=== PATIENT | female | born 1995 | race Two or more races ===

== ENCOUNTER → 2021-03-13 08:03 | Outpatient (BNVA) | payer OTHER, SELFPAY | PROVIDERS: PCP Pediatrics; Visit Provider Surgery ==

== ENCOUNTER 2021-03-14 11:24 | Outpatient (REF) | payer OTHER, SELFPAY ==
--- NOTE | ~2021-03-14 | XR_ITS ---
EXAMINATION: XR CHEST CLINICAL INFORMATION: Obesity COMPARISON: None TECHNIQUE: 2 views of the chest were obtained. FINDINGS: The lung volumes are low. The cardiac and mediastinal contours are normal. The lungs are clear. There is no pleural effusion. Bony structures are unremarkable. XR/XR chest 2V IMPRESSION: Low lung volumes. No evidence for acute disease in the chest.
--- NOTE | 2021-03-14 11:39 | ECG_ITS ---
Test Reason : E66.01 Blood Pressure : / mmHG Vent. Rate : 087 BPM Atrial Rate : 087 BPM P-R Int : 128 ms QRS Dur : 090 ms QT Int : 372 ms P-R-T Axes : 059 022 016 degrees QTc Int : 447 ms Normal sinus rhythm Normal ECG No previous ECGs available Referred By: Rachid Vee Electronically Signed By:JHOAN BUTTERFIELD MD
[2021-03-14 12:29] LABS: MANUAL DIFF FLAG NO
[2021-03-14 12:33] LABS: Basophils Percent Auto 0.3 % (0-2); Eosinophils Absolute Auto 0.1 X10*3/uL (0.0-0.4); Eosinophils Percent Auto 0.8 % (0-4); Hematocrit 42.5 % (37-47); Hemoglobin 14.2 g/dl (12.0-16.0); Imm Gran Abs Auto 0.03 X10*3/uL (0.00-0.03); Imm Gran Pct Auto 0.3 % (0.0-0.4); Lymphocytes Absolute Auto 2.3 X10*3/uL (1.2-4.9); Lymphocytes Percent Auto 25.2 % (20-40); Mean Corpuscular HGB Conc 33.4 g/dl (31.0-35.0); Mean Corpuscular Hemoglobin 32.3 pg (27.0-33.0); Mean Corpuscular Volume 96.8 fL (80-98); Mean Platelet Volume 10.2 fL (9.4-12.3); Monocytes Absolute Auto 0.7 X10*3/uL (0.1-1.2); Monocytes Percent Auto 7.2 % (2-11); Neutrophils Percent Auto 66.2 % (45-73); Platelet Count 271 X10*3/uL (160-400); Red Blood Count 4.39 X10*6/uL (4.20-5.50); Red Cell Distribution Width 12.1 % (11.0-16.0)
[2021-03-14 12:51] LABS: Alanine Aminotransferase 53 U/L (0-31); Albumin Level 4.5 g/dL (3.5-5.0); Alkaline Phosphatase 62 U/L (39-117); Anion Gap 11 (12-20); Aspartate Amino Transferase 29 U/L (5-31); Bilirubin Total 0.4 mg/dL (0.0-1.0); Blood Urea Nitrogen 9 mg/dL (9-16); C Reactive Protein 0.56 mg/dL (< or = 0.50); Calcium 9.7 mg/dL (8.4-10.2); Carbon Dioxide 28 mmol/L (22-29); Chloride 104 mmol/L (96-108); Cholesterol 222 mg/dL; Estimated Glomerular Filt Rate > 60; Glucose Random 116 mg/dL (60-115); HDL Cholesterol 48 mg/dL; Iron 89 mcg/dL (30-160); LDL Cholesterol Calculated 156 mg/dl; Percent Iron Saturation 24 % (15-50); Potassium 4.2 mmol/L (3.3-5.1); Sodium 139 mmol/L (135-145); Total Iron Binding Capacity 366 mcg/dL (228-428); Total Protein 8.1 g/dL (6.5-8.0); Triglycerides 93 mg/dL; Unsaturated Iron Binding 277 ug/dL
[2021-03-14 12:57] LABS: Estimated Average Glucose 111 mg/dL; Hemoglobin A1c % 5.5 %
[2021-03-14 13:13] LABS: Ferritin 53 ng/mL (10-122); TSH reflex Free T4 1.49 uIU/mL (0.32-4.0); Vitamin D 25-OH Total 12.4 ng/mL (>30)
[2021-03-14 13:24] LABS: Folate 15.5 ng/mL (> or = 4.0); Vitamin B12 346 pg/mL (200-900)
[2021-03-15 14:22] LABS: Calcium (PTHI) 9.5 mg/dL (8.6-10.2); PTHI 67 pg/mL (14-64)
[2021-03-15 14:47] LABS: H Pylori Breath Test NOT DETECTED (NOT DETECTED)
[2021-03-16 16:57] LABS: Zinc 77 mcg/dL (60-130)
[2021-03-19 17:36] LABS: Vitamin A 48 mcg/dL (38-98); Vitamin B1 6 nmol/L (8-30)
== END 2021-03-14 11:25 | disposition home or self-care (01) ==
LOC: HO.LAB 11:24
PROVIDERS: PCP Pediatrics; Visit Provider Surgery
DX: E66.01 Morbid (severe) obesity due to excess calories (principal)
CPT/HCPCS: 36415; 71046; 80053; 80061; 82306; 82607; 82728; 82746; 83013; 83036; 83525; 83540; 83970; 84425; 84443; 84590; 84630; 85025; 86140; 93005; 99211

== ENCOUNTER → 2021-03-22 15:02 | Outpatient (BNVA) | payer OTHER, SELFPAY | PROVIDERS: PCP Pediatrics; Visit Provider Physician Assistant ==

== ENCOUNTER → 2021-04-05 08:26 | Outpatient (BNVA) | payer OTHER, SELFPAY | PROVIDERS: PCP Pediatrics; Visit Provider Surgery ==

== ENCOUNTER → 2021-04-10 08:08 | Outpatient (BNVA) | payer OTHER, SELFPAY | PROVIDERS: PCP Pediatrics; Visit Provider Dietitian, Registered | DX: E66.01 Morbid (severe) obesity due to excess calories (principal); Z68.41 Body mass index [BMI] 40.0-44.9, adult | CPT/HCPCS: 97802 ==

== ENCOUNTER 2021-04-11 07:57 | Outpatient (REF) | payer OTHER, SELFPAY ==
--- NOTE | ~2021-04-11 | FL_ITS ---
EXAMINATION: FL UPPER GI SERIES CLINICAL INFORMATION: Bariatric service evaluation, E66.01. COMPARISON: Chest radiograph 03/14/2021 TECHNIQUE: Upper GI series is performed using fluoroscopic evaluation in addition to multiple fluoroscopic spot views. The patient is imaged both upright and prone and using both thick and thin barium sulfate along with effervescent granules. Fluoroscopy time: 1.6 minutes DAP: 31.0 Gycm2 Fluoroscopic spot images: 17 FINDINGS: There is normal esophageal motility. There is no obstruction, stricture, ulceration, or hernia. There is no spontaneous gastroesophageal reflux during the exam. There is mild reflux into lower thoracic esophagus during the water siphon test. The stomach shows no thickened folds or ulcer crater or outlet obstruction. The duodenal bulb is pliable and without ulcer crater or scarring. The post bulbar duodenum the jejunal mucosal pattern are unremarkable. FL/FL upper GI series IMPRESSION: 1. Mild reflux into lower thoracic esophagus during water siphon test. No spontaneous reflux. 2. Normal thoracic esophageal motility. No hiatal hernia. 3. Unremarkable stomach, duodenum, and proximal small bowel.
--- NOTE | ~2021-04-11 | US_ITS ---
EXAMINATION: US COMPLETE ABDOMEN WITH LIVER ELASTOGRAPHY CLINICAL INFORMATION: Morbid (severe) obesity due to excess calories. COMPARISON: None TECHNIQUE: Real-time imaging of the abdominal viscera. Noninvasive ultrasound liver fibrosis assessment is performed using [employer] Elast[employer] point quantification shear wave elastography (pSWE) with a C5-2 MHz transducer. Multiple elastography samples are obtained. FINDINGS: PANCREAS: The pancreas is obscured by overlying gas. ABDOMINAL AORTA: The proximal, middle, and distal aortic segments are normal in caliber. INFERIOR VENA CAVA: Visualized portions are normal. LIVER: The liver demonstrates normal size and contour with increased echogenicity. No focal lesion or intrahepatic biliary duct dilatation. The right lobe measures 13.9 cm in length. The left lobe measures 9.56 cm in length. Portal flow is hepatopetal. Shear wave liver elastography median stiffness is 1.65 m/s (reference: Normal median stiffness is 1.3 m/s or less). IQR/median stiffness to assess sampling precision is 0.19 (reference: Good quality data set is IQR/median stiffness of 0.15 or less). GALLBLADDER: Normal. The gallbladder is physiologically distended without evidence of stones, sludge, polyps, wall thickening or pericholecystic fluid. COMMON BILE DUCT: Normal in caliber measuring 0.33 cm in diameter. RIGHT KIDNEY: Normal. No hydronephrosis. No renal calculi or focal parenchymal lesions. The kidney measures 11.2 cm in maximum dimension. LEFT KIDNEY: Normal. No hydronephrosis. No renal calculi or focal parenchymal lesions. The kidney measures 10.9 cm in maximum dimension. SPLEEN: Normal. The spleen measures 10.2 cm in maximum dimension. FREE FLUID: None. US/US abdomen comp w elastography IMPRESSION: Hepatic steatosis without focal lesion. The rest of the abdominal ultrasound is unremarkable. On elastography, median liver stiffness measures 1.65 m/s suggestive of cACLD. REFERENCE: Society of Radiologists in Ultrasound Liver Stiffness Thresholds (2020): LIVER STIFFNESS THRESHOLDS: *Liver Stiffness equal or less than 1.3 m/s: High probability of being normal. *Liver Stiffness less than 1.7 m/s: In the absence of other known clinical signs, rules out compensated advanced chronic liver disease. *Liver Stiffness 1.7-2.1 m/s: Suggestive of compensated advanced chronic liver disease but need further test for confirmation. *Liver Stiffness over 2.1 m/s: Rules in compensated advanced chronic liver disease. *Liver Stiffness over 2.4 m/s: Suggestive of clinically significant portal hypertension. QUALITY OF DATA SET: *IQR/Median value equal or less than 0.15 implies a quality data set. *IQR/Median value over 0.15 implies a poor quality data set. SIGNIFICANT CHANGE FROM PRIOR EXAM: Significant change if liver stiffness measurement is 10% or greater from prior exam. OTHER CONSIDERATIONS: The stage of liver fibrosis may be overestimated in the setting of acute hepatitis, liver inflammation, elevated liver function tests, hepatic vascular congestion, obstructive cholestasis, non-fasting state, and infiltrative diseases such as amyloidosis and lymphoma. In some patients with NAFLD, the liver stiffness thresholds for compensated advanced chronic liver disease may be lower. In causes other than viral hepatitis and NAFLD, liver stiffness thresholds are not well established.
== END 2021-04-11 07:58 | disposition home or self-care (01) ==
LOC: HO.US 07:57
PROVIDERS: Visit Provider Surgery
DX: Z01.818 Encounter for other preprocedural examination (principal); E66.01 Morbid (severe) obesity due to excess calories; K21.9 Gastro-esophageal reflux disease without esophagitis
CPT/HCPCS: 74240; 76705; 76981

== ENCOUNTER → 2021-05-29 07:09 | Outpatient (BNVA) | payer OTHER, SELFPAY | PROVIDERS: PCP Pediatrics; Visit Provider Surgery ==